=== PATIENT | female | born 1970 | race Caucasian/White ===

== ENCOUNTER 2016-12-14 06:10 | Day surgery (SDC) | payer BC ==
[2016-12-05 17:37] VITALS: BMI 22.4
[2016-12-14] MEDS ORDERED: GENTAMICIN SO4 80 MG/2 ML VIAL ONE (07:12)
[2016-12-14] MEDS ORDERED: ceFAZolin SODIUM 1 GM VIAL ONE ×3 (07:12→09:08)
[2016-12-14] MEDS ORDERED: LIDOCAINE HCL 1%, 10 MG/ML (20ML VIAL) ONE (07:12)
[2016-12-14] MEDS ORDERED: EPINEPHrine/PF 1 MG/1 ML (1:1,000) AMPULE ONE (07:13)
[2016-12-14] MEDS ORDERED: SUCCINYLCHOLINE CHLORIDE 200 MG/10 ML VIAL ONE (07:29)
[2016-12-14] MEDS ORDERED: PROPOFOL 20 ML ONE ×2 (07:29)
[2016-12-14] MEDS ORDERED: MIDAZOLAM HCL 2 MG/2 ML SINGLE DOSE VIAL ONE (07:29)
[2016-12-14] MEDS ORDERED: BUPIVACAINE HCL/PF 2.5 MG/ML - 30 ML VIAL IJ ONE (07:44)
[2016-12-14] MEDS ORDERED: LIDOCAINE 1%/EPI 1:100000 (20 ML MULTI DOSE VIAL) ONE (07:44)
[2016-12-14] MEDS ORDERED: BUPIVACAINE 0.25% /EPI 1:200,000 10 ML VIAL INF ONE (08:17)
[2016-12-14] MEDS ORDERED: LIDOCAINE 1%/EPI 1:100000 (50 ML MULTI DOSE VIAL) INF ONE (08:17)
[2016-12-14] MEDS ORDERED: DEXAMETHASONE SOD PHOSPHATE 4 MG/1 ML VIAL ONE (08:25)
[2016-12-14] MEDS ORDERED: ONDANSETRON 4 MG/2 ML VIAL ONE (08:25)
[2016-12-14] MEDS ORDERED: ONDANSETRON 4 MG/2 ML VIAL IVPUSH PRN (10:13)
[2016-12-14] MEDS ORDERED: PROMETHAZINE HCL 25 MG/1 ML VIAL IVPUSH PRN (10:13)
[2016-12-14] MEDS ORDERED: oxyCODONE HCL 5 MG TABLET PO PRN ×2 (10:13)
[2016-12-14] MEDS ORDERED: LACTATED RINGERS SOLUTION 1,000 ML IV SCH (10:15)
--- NOTE | 2016-12-14 10:18 | OP ---
Operative Note - Note: Operative Date: 12/14/16 Pre-Operative Diagnosis: Aquired chest wall deformity Operation: Bilateral subcutaneous tissue transfer from abdomen, flanks, and thighs to bilateral breasts and bilateral implant exchange Findings: asymmetry of breast reconstruction Implants: Silicone Surgeon: Roger Long Rubber Belt Splicer: Pati Alba Anesthesiologist/DIAMOND BLENDER: Mark Nascimento Anesthesia: MAC Specimens Removed: bilateral breast implants Estimated Blood Loss (mls): 20 Operative Report Dictated: Yes
[2016-12-14 14:59] VITALS: TEMP 98
[2016-12-14] MEDS ORDERED: oxyCODONE HCL 5 MG TABLET ONE (15:20)
[2016-12-14 16:56] VITALS: BP 107/62; PULSE 74
--- NOTE | 2016-12-15 10:57 | OP ---
DATE OF OPERATION: 12/14/2016 SURGEON: Momo Long MD MICA LAMINATING MACHINE FEEDER SURGEON: ANGELICA Rowland PREOPERATIVE DIAGNOSES: 1. 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 2. Asymmetry of reconstructed chest wall. 3. Mechanical complication of breast implant with malposition. POSTOPERATIVE DIAGNOSES: 1. 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 2. Asymmetry of reconstructed chest wall. 3. Mechanical complication of breast implant with malposition. OPERATIVE PROCEDURES: 1. Right breast reconstruction with other technique. 2. Left breast reconstruction with other technique. 3. Right breast capsulectomy, removal and replacement of right breast implant. 4. Left breast capsulotomy, removal and replacement of left breast implant. OPERATIVE INDICATION: The patient is a young woman who presents with asymmetry of the reconstructed chest wall after previous mastectomy elsewhere. The risks and benefits of surgical versus nonsurgical alternatives as well as material complications were described to the patient on multiple occasions preoperatively, including today in the holding area with the patient and her in attendance, with reconfirmation, with marking of the breast for reconstructive purposes. OPERATIVE PROCEDURE IN DETAIL: Patient was taken to the operating room, and after induction of general anesthesia in supine position, both arms were extended and padded, Venodyne boots were placed, and then the entire chest wall was painted with ChloraPrep solution over its entire extent. At this point attention was turned to the mastectomy scars. The scars were injected with 1% local lidocaine anesthesia, 1:100,000 epinephrine down through skin to subcutaneous tissue, and the flank area, which had been prepped previously, was also injected. An incision was then made down through skin to subcutaneous tissue in the right breast after placement of sterile drapes and timeout, down through the subcutaneous tissue down to the underlying capsule of the right breast. The right breast showed significant malposition with bottoming out on the right side, and dissection was carried beneath the inferior capsule along the chest wall superiorly at approximately 1-1.5 cm in the superior direction. After this was accomplished, an incision was made in the capsule above and the implant removed. This is a textured, shaped implant of 375 mL volume. The exact same procedure was carried out symmetrically on the opposite side by incising the breast and removing the implant on the left side. At this point attention was turned to the lower abdominal region. An incision was made down through skin to subcutaneous tissue, through the subcutaneous tissue down to the underlying fascia. At this point tissue was harvested from the lower abdomen and flanks for reconstructive purposes by making this incision deep into the abdominal wall and harvesting tissue. This tissue was transferred to the back table and prepared for reconstructive purposes by washing and cleansing. Attention was then turned back to the breasts. At this point, a new implant was chosen. The implant of [facility] Cohesive breast implant, style SCF, 450 mL, was then placed into the right breast pocket. The wound was closed with running 3-0 PDS sutures along the capsule, elevating the capsule into new position and correcting the lower pole deformity. The exact same procedure was carried out on the left breast, also matching the inframammary fold and choosing the same 450-mL implant. At this point the tissue was then transferred to the superior, medial, inferior, and lateral portions and central of the right breast as well as the same positions on the left breast in order to correct the deformities. Copious irrigation of the wounds was performed. Closure was accomplished using 3-0 Biosyn in the deep dermis and 4-0 in a subcuticular fashion on both breasts symmetrically. She tolerated the procedure well. The donor site was then closed with interrupted and running sutures. All wounds were dressed sterilely with Dermabond, Steri-Strips, and a compressive dressing. She was awakened, extubated, and transferred to the recovery room in satisfactory condition. MOMO LONG M.D. [id number]
--- NOTE | 2016-12-15 19:01 | PATH ---
Surgical Pathology Report Patient Name: CALLIE MORENO Med. Rec. 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 Electronically Signed Jb John M.D. Gross Description Received fresh labeled "bilateral implants," are 2 carrillo, irregular, rubbery breast implants averaging 13.0 x 12.5 x 5.0 cm. No soft tissue is present. No sections are submitted, gross only. /12/15/201612/15/2016
== END 2016-12-14 16:35 | disposition home or self-care (01) ==
LOC: FASU 06:10
PROVIDERS: ATTEND Plastic Surgery
PROC: 0HRT0JZ Replacement of Right Breast with Synthetic Substitute, Open Approach (ICD-10-PCS; 2016-12-14)
PROC: 0HNU0ZZ Release Left Breast, Open Approach (ICD-10-PCS; 2016-12-14)
PROC: 0HUU0JZ Supplement Left Breast with Synthetic Substitute, Open Approach (ICD-10-PCS; 2016-12-14)
PROC: 0HPU0JZ Removal of Synthetic Substitute from Left Breast, Open Approach (ICD-10-PCS; 2016-12-14)
PROC: 0HRU0JZ Replacement of Left Breast with Synthetic Substitute, Open Approach (ICD-10-PCS; 2016-12-14)
PROC: 0HRV07Z Replacement of Bilateral Breast with Autologous Tissue Substitute, Open Approach (ICD-10-PCS; principal; 2016-12-14 07:55)
PROC: 0HPT0JZ Removal of Synthetic Substitute from Right Breast, Open Approach (ICD-10-PCS; 2016-12-14 07:55)
DX: M95.4 Acquired deformity of chest and rib (principal); Z90.13 Acquired absence of bilateral breasts and nipples; N65.1 Disproportion of reconstructed breast; T85.41XA Breakdown (mechanical) of breast prosthesis and implant, initial encounter; Y83.8 Other surgical procedures as the cause of abnormal reaction of the patient, or of later complication, without mention of misadventure at the time of the procedure; Y92.89 Other specified places as the place of occurrence of the external cause
CPT/HCPCS: 88300-TC; 94760